=== PATIENT | female | born 1970 | race Caucasian/White ===

== ENCOUNTER 2016-06-10 18:04 | Inpatient (IN) | payer OTHER ==
--- NOTE | ~2016-06-10 | CO ---
Unit #: [id number] #: [id number] Patient: TOBIN AGUIRRE [id number] [place] [address] [id number] MR#: [id number] NAME: TOBIN AGUIRRE ROOM: [facility] Age: 46 Sex: F Admission Date: 06/10/2016 : 1970 Attending Physician: Vamsi Bonilla M.D. CONSULTATION REPORT SUBJECTIVE Tobin is 46-year-old with history of irregular heart beat. This was outlined and described in her admission H and P dated 06/11/2016. Please see H and P dated 06/11/2016. Dictated by... Shanita Mello P.A.-C. for Mateusz Wheeler/oracio TD: 06/15/2016 17:22 JOB #: [id number] CONSULTATION REPORT Page 1 of 1 X Shanita Mello CONSULTATION REPORT
--- NOTE | ~2016-06-10 | DS ---
Unit #: [id number] #: [id number] Patient: TOBIN AGUIRRE [id number] [facility] [address] [place] [address] [id number] I MR#: [id number] NAME: TOBIN AGUIRRE ROOM: P212 Age: 46 Sex: F Admission Date: 06/10/2016 : 1970 Discharge Date: 06/12/2016 Attending Physician: Vamsi Bonilla M.D. Primary Care Physician: Primary Care Physician No DISCHARGE SUMMARY REASON FOR ADMISSION The patient is a 46-year-old single white female, admitted to the [address] [place] [address] unit for alcohol detox. HOSPITAL COURSE The patient was admitted to the [address] [place] [address] unit and placed on suicide precautions. She was placed on routine detoxification protocol for alcohol. Her stay in the hospital was a brief and uneventful one. She exhibited little in the way of signs or symptoms of withdrawal and requested discharge from the hospital. On 06/12/2016, she had undergone an EKG which was read as normal. She had stated that in the past she had been treated for a regular heart beat. Discharge was ordered. FINAL DIAGNOSIS Alcohol use disorder. DISPOSITION ON DISCHARGE The patient is discharged on no psychotropic or other medications. FOLLOWUP Followup will take place through the auspices of community mental health resources in the [place], [place] area. PROGNOSIS The patient's prognosis is considered fair. Dictated by... Vamsi Bonilla M.D. CB/oracio TD: 06/12/2016 22:37 JOB #: [id number] Unit #: [id number] #: [id number] Patient: TOBIN AGUIRRE DISCHARGE SUMMARY Page 1 of 1 X Vamsi Bonilla MD X DISCHARGE SUMMARY
--- NOTE | ~2016-06-10 | PA ---
Unit #: [id number] #: [id number] Patient: TOBIN AGUIRRE [id number] [place] [address] [id number] I MR#: [id number] NAME: TOBIN AGUIRRE ROOM: P212 Age: 46 Sex: F Admission Date: 06/10/2016 : 1970 Date of Assessment: 06/11/2016 Attending Physician: Vamsi Bonilla M.D. Admitting Physician: Vamsi Bonilla M.D. Primary Care Physician: Primary Care Physician No PSYCHIATRIC ASSESSMENT IDENTIFYING INFORMATION The patient is a 46-year-old homeless white female admitted with increasing alcohol and crack cocaine abuse and suicidal ideation. CHIEF COMPLAINT "I'm depressed and an alcoholic." INFORMANT(S) Patient, reliability is good. HISTORY OF PRESENT ILLNESS The patient is a 46-year-old white female with a long history of alcohol dependence and depression. The patient also reports abuse of crack cocaine. She has since March been homeless after having been expelled from the domicile she had previously shared with her sister following a recent relapse. The patient reports no previous chemical dependence treatment or psychiatric treatment. She does complain of poor sleep, loss of appetite, and ongoing suicidal ideation when seen today. She has a history of one previous attempt, this having taken place by means of having cut her wrist. She was not psychiatrically hospitalization thereafter, however. In addition to alcohol, the patient admits to abuse of crack cocaine. PAST PSYCHIATRIC HISTORY As above. PAST MEDICAL HISTORY Significant for history of "irregular heart beat." The patient reports that she was previously on Lopressor for this but is presently on no cardiac medication. MEDICATIONS None. ALLERGIES None. FAMILY HISTORY The patient reports and extensive family history of mood disorder and psychiatric illness. SOCIAL HISTORY The patient is currently homeless. She has been living in [place]. She Unit #: [id number] #: [id number] Patient: TOBIN AGUIRRE completed her GED. She has never and has no children. Her last job was (1) __. SUBSTANCE ABUSE HISTORY As described previously, and she is a smoker. MENTAL STATUS EXAMINATION Examination at this time reveals the patient to be a well-developed well-nourished somewhat disheveled white female appearing older than her stated age of 46 years. She is in no apparent physical distress at the time of examination. She is awake, alert, and oriented in all spheres. Her mood is dysphoric, her affect blunted. Speech is generally well coherent. No gross deficits in memory or cognition noted. Intelligence is judged to be in the average range based on fund of knowledge. The patient is cooperative throughout the interview. She is currently reporting positive suicidal ideation. She denies homicidal ideation. She denies any psychotic symptoms. Her judgment and insight appear to be reasonably intact. ASSETS AND LIABILITIES The patient's assets: Motivation for change. Liabilities: Lack of resources. DIAGNOSTIC IMPRESSION 1. Alcohol use disorder. 2. Cocaine use disorder. 3. Dysthymic disorder. 4. History of irregular heartbeat. TREATMENT PLAN The patient remains hospitalized for safety and stabilization. We will begin detoxification protocol for alcohol, and suicide precautions are in place. I will ask for an EKG and medical consult given the patient's reported history of abnormal heartbeat, and we will hold on initiation of psychotropic medication pending determination as to whether the patient will or will not need any cardiac medications. ESTIMATED LENGTH OF STAY 5 days. The followup will take place through the auspices of community mental health resources in the [facility]. Dictated by... Vamsi Bonilla M.D. PÉREZ/pao TD: 06/11/2016 14:56 JOB #: [id number] Unit #: [id number] #: [id number] Patient: TOBIN AGUIRRE PSYCHIATRIC ASSESSMENT Page 1 of 1 X Vamsi Bonilla MD X PSYCHIATRIC ASSESSMENT
--- NOTE | ~2016-06-10 | HP ---
Unit #: [id number] #: [id number] Patient: TOBIN AGUIRRE [id number] [facility] [address] [place] [address] [id number] MR#: [id number] NAME: TOBIN AGUIRRE ROOM: P212 Age: 46 Sex: F Admission Date: 06/10/2016 : 1970 Attending Physician: Vamsi Bonilla M.D. Admitting Physician: Vamsi Bonilla M.D. Primary Care Physician: Primary Care Physician No HISTORY AND PHYSICAL HISTORY OF PRESENT ILLNESS Tobin is a 46 year old admitted to [address] [place] [address] because of her polysubstance abuse which includes alcohol and crack cocaine. PAST MEDICAL HISTORY 1. Long history of alcohol abuse. 2. Long history of illicit substance abuse to include crack cocaine. 3. Patient reports a history of arrhythmia (?). She tells us that she was on Lopressor "years ago." PAST SURGICAL HISTORY Nothing reported. ALLERGIES No known drug allergies. SOCIAL HISTORY Smokes less than 1/2 pack per day. Drinks up to two fifths of vodka on a daily basis and admits to regular use of crack cocaine. FAMILY HISTORY Medically noncontributory. REVIEW OF SYSTEMS CONSTITUTIONAL: No fever or chills. HEENT: Denies any sore throat, ear pain or runny nose. CARDIOVASCULAR: Denies chest pain, irregular heart rhythm or palpitations. CHEST: Denies shortness of breath or cough. No hemoptysis. GASTROINTESTINAL: Denies nausea, vomiting, diarrhea or chronic constipation. ENDOCRINE: Denies history of increased thirst or urination. No recent significant weight loss or gain. GENITOURINARY: Denies dysuria, frequency, or hematuria. SKIN: Denies any rashes. HEMATOLOGIC: Denies history of increased bleeding or bruising. MUSCULOSKELETAL: Denies any hot, swollen joints. No generalized muscle pain. NEUROLOGIC: Denies problems with vision or speech. No frequent, severe headaches. No numbness, tingling or weakness in any extremities. Denies loss of bladder or bowel control. CURRENT MEDICATIONS Detox protocol. Unit #: [id number] #: [id number] Patient: TOBIN AGUIRRE PHYSICAL EXAMINATION GENERAL: Alert, well-nourished, in no apparent distress. VITAL SIGNS: Blood pressure 122/80, heart rate 80, respirations 16, temperature 98.6. WEIGHT: 180. HEIGHT: 5 feet 9 inches. SKIN: Warm and dry without rash or lesion. HEENT: Normocephalic. TMs not viewed. Oral and nasal passages clear. Conjunctivae clear. PERRLA. EOMs intact. NECK: Supple without lymphadenopathy or thyromegaly. HEART: Regular rate and rhythm without murmur. LUNGS: Clear. ABDOMEN: Soft, nontender. : Not done. EXTREMITIES: No evidence of cyanosis, clubbing or edema. Moves all without focal deficit. NEUROLOGICAL: Grossly within normal limits. Cranial Nerves: II: Visual castelan are intact. III, IV AND : Extraocular movements are intact. Pupils are equal, round and reactive to light. V: Facial sensation is grossly normal. VII: Facial movements and expression are normal. VIII: Auditory acuity grossly intact. IX, X: Uvula is midline. Phonation is normal. XI: Patient shrugs shoulders and turns head normally. XII: Tongue protrudes in the midline. Sensory and Motor Function: Sensory and motor sensation is grossly normal. Motor: moves all extremities well. Coordination: Gait is normal. Deep Tendon Reflexes: Intact. IMPRESSION 1. Psychiatric admission. 2. History of polysubstance abuse. 3. Patient reports history of arrhythmia (?). She tells us that she used to be on Lopressor but that was "years ago." She has no complaints of irregular heartbeats, shortness of breath or chest pain. Cardiac rhythm is regular at time of admission. RECOMMENDATIONS PSYCHIATRIC: Per psychiatrist. MEDICAL: 1. See no contraindications to participate in facility's activities. 2. Detox per protocol. 3. No plans to restart Lopressor. She can follow up with primary care should she so desire. MEDICAL PROGNOSIS Good. MEDICAL CONDITION Stable. Dictated by... Shanita Mello P.A.-C. for Reno Ríos M.D. Unit #: [id number] #: [id number] Patient: TOBIN AGUIRRE/bethany TD: 06/11/2016 20:58 JOB #: [id number] HISTORY AND PHYSICAL Page 1 of 1 X Shanita Mello X HISTORY AND PHYSICAL
[2016-06-11 09:33] LABS: BASOPHIL# 0.1 X10e3 (0-0.3); EOSINOPHIL# 0.2 X10e3 (0-0.7); EOSINOPHIL% 2.9 % (0.0-7.0); HEMATOCRIT 40.3 % (35.0-45.0); HEMOGLOBIN 13.3 gm/dL (12.0-16.0); LYMPHOCYTE# 2.1 X10e3 (1.0-3.5); LYMPHOCYTE% 34.9 % (17.0-45.0); MEAN CELL VOLUME 89.7 FL (83-96); MEAN CORPUSCULAR HEMOGLOBIN 29.7 PG (28-34); MEAN CORPUSCULAR HGB CONC 33.1 g/dL (30-36); MEAN PLATELET VOLUME 7.4 FL (6.5-11.5); MONOCYTE# 0.3 X10e3 (0-1.0); MONOCYTE% 5.4 % (3.0-12.0); NEUTROPHIL# 3.4 X10e3 (1.5-7.1); NEUTROPHIL% 55.8 % (40-75); PLATELET COUNT 314 X10e3 (140-420); RED BLOOD COUNT 4.49 X10e (3.90-5.30); RED CELL DISTRIBUTION WIDTH 14.9 % (11.0-15.5)
[2016-06-11 09:46] LABS: DIFF IND NO
[2016-06-11 10:23] LABS: THYROID STIMULATING HORMONE 2.11 uIU/ml (0.34-5.60)
[2016-06-11 10:28] LABS: ALBUMIN SERUM 3.3 g/dL (3.5-5.0); BILIRUBIN,TOTAL 0.5 mg/dL (0.2-2.0); BUN/CREATININE RATIO 8.33; CALCIUM SERUM 9.1 mg/dL (8.4-10.2); CREATININE SERUM 1.2 mg/dL (0.6-1.4); GLOM FILT RATE Estimated 54.5 mL/min (>60); POTASSIUM 3.8 mmol/L (3.5-5.1)
[2016-06-11 10:30] LABS: FREE THYROXIN (T4) 0.79 ng/dL (0.58-1.64)
[2016-06-12 11:16] LABS: AMPHETAMINE NEG (NEG); BARBITURATES NEG (NEG); BENZODIAZEPINES POS (NEG); COCAINE POS (NEG); MARIJUANA NEG (NEG); OPIATES NEG (NEG); TRICYCLIC ANTIDEPRESSANTS NEG (NEG); U METHADONE NEG (NEG)
[2016-06-12 11:18] LABS: URINE BLOOD NEG (NEG); URINE COLOR AMBER; URINE GLUCOSE NORM (NORM); URINE KETONE NEG (NEG); URINE LEUKOCYTE ESTERASE NEG (NEG); URINE NITRATE NEG (NEG); URINE PROTEIN NEG (NEG); URINE SPECIFIC GRAVITY 1.015 (1.003-1.035); URINE UROBILINOGEN 12 MG/DL (NORM)
[2016-06-12 11:19] LABS: URINE APPEARANCE TURBID; URINE BILIRUBIN NEG (NEG)
== END 2016-06-12 15:57 | disposition home or self-care (01) | DRG 897 ==
LOC: P2S 18:04
PROVIDERS: Specialist
PROC: HZ2ZZZZ Detoxification Services for Substance Abuse Treatment (ICD-10-PCS; principal; 2016-06-10)
DX: F10.20 Alcohol dependence, uncomplicated (principal); F14.20 Cocaine dependence, uncomplicated; R45.851 Suicidal ideations; F17.200 Nicotine dependence, unspecified, uncomplicated; F34.1 Dysthymic disorder
CPT/HCPCS: 80053; 80307; 81003; 84439; 84443; 84703; 85025; 86592